=== PATIENT | male | born 1985 | race Caucasian/White ===

== ENCOUNTER 2020-09-13 21:16 | Emergency (ER) | payer BC ==
[2020-09-13] MEDS ORDERED: TYLENOL 325 MG PO ONE (21:45)
[2020-09-13] MEDS ORDERED: Reglan 10 MG/2 ML IV ONE (21:45)
[2020-09-13] MEDS ORDERED: Reglan 10 MG/2 ML ONE (21:51)
[2020-09-13] MEDS ORDERED: TYLENOL 325 MG ONE (21:51)
--- NOTE | 2020-09-13 21:56 | ERPHSYRPT ---
- History of Present Illness Time Seen by Provider: 09/13/20 21:33 Source: patient Exam Limitations: no limitations Patient Subjective Stated Complaint: pt states he has had headache at home , took a nap and woke up with a worse headache. bp at home was 191/114 Triage Nursing Assessment: pt alert and oriented, answers questions approp. pt ambulatory with steady gait noted. respirations nonlabored with lungs cta. pupils equal and reactive. bilat upper and lower ext strength equal and wnl Physician History: 35 years old male with history of migraines, hypertension not taking any medications currently presented in the ER with sudden onset headache in the occipital and left-sided moderate to severe intensity, sharp throbbing in nature, associated with nausea but no vomiting. Denies any numbness tingling or focal weakness. Headache is aggravated with light, movements/noise and better with sitting in a dark room. Do not have any difficulty movements of neck. Patient reports having similar headaches in the past but this time is not going away and checked his blood pressure at home it was 191 systolic. Patient reports he stopped taking antihypertensive as he lost weight and his blood pressure was staying better without medications for almost 6 months. No chest pain palpitations or shortness of breath. No abdominal pain. No fever or chills reported. Denies any sick contact. Timing/Duration: today, sudden, worse Quality: sharpness, throbbing Head Pain Location: occipital Severity of Pain-Max: severe Severity of Pain-Current: moderate Recent Head Trauma: no recent headache/trauma Modifying Factors: Worsens With: exposure to light, movement, noise Associated Symptoms: denies symptoms Previous symptoms: same symptoms as today Allergies/Adverse Reactions: Penicillins Allergy (Severe, Verified 09/13/20 21:39) Difficulty Breathing codeine Adverse Reaction (Intermediate, Verified 09/13/20 21:39) Hx Tetanus, Diphtheria Vaccination/Date Given: Yes Hx Influenza Vaccination/Date Given: No Hx Pneumococcal Vaccination/Date Given: No Immunizations Up to Date: Yes Travel Risk - International Travel Have you traveled outside of the country in past 3 weeks: No - Coronavirus Screening Are you exhibiting any of the following symptoms?: No Close contact with a COVID-19 positive Pt in past 14-21 Days: No - Review of Systems Constitutional: No Symptoms Eyes: No Symptoms Ears, Nose, & Throat: No Symptoms Respiratory: No Symptoms Cardiac: No Symptoms Abdominal/Gastrointestinal: No Symptoms Genitourinary Symptoms: No Symptoms Musculoskeletal: No Symptoms Skin: No Symptoms Neurological: Headache Psychological: No Symptoms Endocrine: No Symptoms Hematologic/Lymphatic: No Symptoms Immunological/Allergic: No Symptoms - Past Medical History Pertinent Past Medical History: Yes Cardiac History: Hypertension Respiratory History: Sleep Apnea - Past Surgical History Past Surgical History: Yes Musculoskeletal: Orthopedic Surgery Other Surgical History: carpal tunnel x2 - Social History Smoking Status: Never smoker Exposure to second hand smoke: No Drug Use: none Patient Lives Alone: No - Nursing Vital Signs Nursing Vital Signs: Initial Vital Signs Pulse Rate 78 09/13/20 21:22 Respiratory Rate 18 09/13/20 21:22 Blood Pressure 176/117 09/13/20 21:22 Pain Scale Pain Intensity 2 - Physical Exam General Appearance: no apparent distress, alert Eye Exam: PERRL/EOMI, eyes nml inspection Ears, Nose, Throat Exam: normal ENT inspection, TMs normal, pharynx normal Neck Exam: normal inspection, non-tender, supple, full range of motion Respiratory Exam: normal breath sounds, lungs clear Cardiovascular Exam: regular rate/rhythm, normal heart sounds Gastrointestinal/Abdominal Exam: soft, normal bowel sounds, No tenderness Back Exam: normal inspection, normal range of motion Extremity Exam: normal inspection, normal range of motion insight leader Exam: normal hearing, normal speech, PERRL Coordination/Gait Exam: normal finger to nose, normal gait, normal cerebellar function, negative Romberg's sign Motor/Sensory Exam: no motor deficit, no sensory deficit, no pronator drift, negative Babinski's sign DTR Exam: bicep (R): 2+, bicep (L): 2+, knee (R): 2+, knee (L): 2+ Skin Exam: normal color SpO2 Interpretation: normal O2 Delivery: Room Air - Course EKG Interpreted by Me: RATE (71), NORMAL AXIS, NORMAL INTERVALS, Non-specific ST Changes Ordered Tests: Active Orders 24 hr Category Date Time Status EKG-ER Only STAT Care 09/13/20 21:47 Active IV Insertion STAT Care 09/13/20 21:45 Active CHEST 1 VIEW (PORTABLE) Stat Exams 09/13/20 21:47 Taken HEAD WITHOUT CONTRAST [CT] Stat Exams 09/13/20 21:46 Taken CBC W DIFF Stat Lab 09/13/20 21:55 Completed CMP Stat Lab 09/13/20 21:55 Completed TROPONIN Q3H Lab 09/13/20 21:55 Completed TROPONIN Q3H Lab 09/14/20 01:00 Ordered TROPONIN Q3H Lab 09/14/20 04:00 Ordered TROPONIN Q3H Lab 09/14/20 07:00 Ordered TROPONIN Q3H Lab 09/14/20 10:00 Ordered UA W/RFX UR CULTURE Stat Lab 09/13/20 21:48 Completed Urine Triage Profile Stat Lab 09/13/20 21:48 Completed Medication Summary Discontinued Medications Generic Name Dose Route Start Last Admin Trade Name Freq PRN Reason Stop Dose Admin Acetaminophen 975 mg 09/13/20 21:45 09/13/20 21:53 Tylenol 325 Mg PO 09/13/20 21:46 975 mg STAT ONE Administration Acetaminophen Confirm 09/13/20 21:51 Tylenol 325 Mg Administered 09/13/20 21:52 Dose 975 mg .ROUTE .STK-MED ONE Ketorolac Tromethamine 30 mg 09/13/20 22:35 09/13/20 22:38 Toradol 30 Mg Injection IV 09/13/20 22:36 30 mg STAT ONE Administration Ketorolac Tromethamine Confirm 09/13/20 22:35 Toradol 30 Mg Injection Administered 09/13/20 22:36 Dose 30 mg .ROUTE .STK-MED ONE Metoclopramide HCl 10 mg 09/13/20 21:45 09/13/20 21:53 Reglan 10 Mg/2 Ml IV 09/13/20 21:46 10 mg STAT ONE Administration Metoclopramide HCl Confirm 09/13/20 21:51 Reglan 10 Mg/2 Ml Administered 09/13/20 21:52 Dose 10 mg .ROUTE .STK-MED ONE Lab/Rad Data: Laboratory Result Diagrams 09/13/20 21:55 09/13/20 21:55 Laboratory Results 09/13/20 09/13/20 09/13/20 Range/Units 21:55 21:55 21:55 WBC 10.9 H (4.0-10.5) K/mm3 RBC 5.50 (4.1-5.6) M/mm3 Hgb 15.9 (12.5-18.0) gm/dl Hct 49.0 (42-50) % MCV 89.1 (78-100) fl MCH 28.9 (26-32) pg MCHC 32.4 (32-36) g/dl RDW 13.1 (11.5-14.0) % Plt Count 251 (150-450) K/mm3 MPV 10.0 (7.5-11.0) fl Gran % 62.3 (36.0-66.0) % Eos # (Auto) 0.39 (0-0.5) Absolute Lymphs (auto) 2.65 (1.0-4.6) Absolute Monos (auto) 1.02 (0.0-1.3) Lymphocytes % 24.4 (24.0-44.0) % Monocytes % 9.4 (0.0-12.0) % Eosinophils % 3.6 (0.00-5.0) % Basophils % 0.3 (0.0-0.4) % Absolute Granulocytes 6.78 (1.4-6.9) Basophils # 0.03 (0-0.4) Sodium 139 (137-145) mmol/L Potassium 4.0 (3.5-5.1) mmol/L Chloride 100 (98-107) mmol/L Carbon Dioxide 31 H (22-30) mmol/L Anion Gap 12.2 (5-15) MEQ/L BUN 16 (9-20) mg/dL Creatinine 1.05 (0.66-1.25) mg/dL Estimated GFR > 60.0 ML/MIN Glucose 116 H (74-106) mg/dL Calcium 9.5 (8.4-10.2) mg/dL Total Bilirubin 0.70 (0.2-1.3) mg/dL AST 34 (17-59) U/L ALT 41 (0-50) U/L Alkaline Phosphatase 69 (38-126) U/L Troponin I < 0.012 (0.000-0.034) ng/mL Serum Total Protein 8.3 H (6.3-8.2) g/dL Albumin 4.7 (3.5-5.0) g/dL Urine Color (YELLOW) Urine Appearance (CLEAR) Urine pH (5-6) Ur Specific [place] (1.005-1.025) Urine Protein (Negative) Urine Ketones (NEGATIVE) Urine Blood (0-5) Cyrus/ul Urine Nitrite (NEGATIVE) Urine Bilirubin (NEGATIVE) Urine Urobilinogen (0-1) mg/dL Ur Leukocyte Esterase (NEGATIVE) Urine WBC (Auto) (0-5) /HPF Urine RBC (Auto) (0-2) /HPF U Epithel Cells (Auto) (FEW) /HPF Urine Bacteria (Auto) (NEGATIVE) /HPF Amorphous Crystals (NEGATIVE) /HPF Urine Mucus (Auto) (NEGATIVE) /HPF Urine Culture Reflexed (NO) Urine Glucose (NEGATIVE) mg/dL Urine Opiates Level (NEGATIVE) Ur Methadone (NEGATIVE) Urine Barbiturates (NEGATIVE) Ur Phencyclidine (PCP) (NEGATIVE) Urine Amphetamine (NEGATIVE) U Benzodiazepine Level (NEGATIVE) Urine Cocaine (NEGATIVE) Urine Marijuana (THC) (NEGATIVE) 09/13/20 09/13/20 Range/Units 21:48 21:48 WBC (4.0-10.5) K/mm3 RBC (4.1-5.6) M/mm3 Hgb (12.5-18.0) gm/dl Hct (42-50) % MCV (78-100) fl MCH (26-32) pg MCHC (32-36) g/dl RDW (11.5-14.0) % Plt Count (150-450) K/mm3 MPV (7.5-11.0) fl Gran % (36.0-66.0) % Eos # (Auto) (0-0.5) Absolute Lymphs (auto) (1.0-4.6) Absolute Monos (auto) (0.0-1.3) Lymphocytes % (24.0-44.0) % Monocytes % (0.0-12.0) % Eosinophils % (0.00-5.0) % Basophils % (0.0-0.4) % Absolute Granulocytes (1.4-6.9) Basophils # (0-0.4) Sodium (137-145) mmol/L Potassium (3.5-5.1) mmol/L Chloride (98-107) mmol/L Carbon Dioxide (22-30) mmol/L Anion Gap (5-15) MEQ/L BUN (9-20) mg/dL Creatinine (0.66-1.25) mg/dL Estimated GFR ML/MIN Glucose (74-106) mg/dL Calcium (8.4-10.2) mg/dL Total Bilirubin (0.2-1.3) mg/dL AST (17-59) U/L ALT (0-50) U/L Alkaline Phosphatase (38-126) U/L Troponin I (0.000-0.034) ng/mL Serum Total Protein (6.3-8.2) g/dL Albumin (3.5-5.0) g/dL Urine Color YELLOW (YELLOW) Urine Appearance CLOUDY (CLEAR) Urine pH 7.0 (5-6) Ur Specific [place] 1.019 (1.005-1.025) Urine Protein 30 (Negative) Urine Ketones NEGATIVE (NEGATIVE) Urine Blood NEGATIVE (0-5) Cyrus/ul Urine Nitrite NEGATIVE (NEGATIVE) Urine Bilirubin NEGATIVE (NEGATIVE) Urine Urobilinogen NEGATIVE (0-1) mg/dL Ur Leukocyte Esterase NEGATIVE (NEGATIVE) Urine WBC (Auto) 0-2 (0-5) /HPF Urine RBC (Auto) NONE (0-2) /HPF U Epithel Cells (Auto) NONE (FEW) /HPF Urine Bacteria (Auto) NONE SEEN (NEGATIVE) /HPF Amorphous Crystals FEW (NEGATIVE) /HPF Urine Mucus (Auto) SLIGHT (NEGATIVE) /HPF Urine Culture Reflexed NO (NO) Urine Glucose NEGATIVE (NEGATIVE) mg/dL Urine Opiates Level NEGATIVE (NEGATIVE) Ur Methadone NEGATIVE (NEGATIVE) Urine Barbiturates NEGATIVE (NEGATIVE) Ur Phencyclidine (PCP) NEGATIVE (NEGATIVE) Urine Amphetamine NEGATIVE (NEGATIVE) U Benzodiazepine Level NEGATIVE (NEGATIVE) Urine Cocaine NEGATIVE (NEGATIVE) Urine Marijuana (THC) NEGATIVE (NEGATIVE) - Progress Progress: improved, re-examined Air Movement: good Progress Note: 09/13/20 22:45 Patient has nonfocal neuro exam throughout stay in the ER. He is given migraine cocktail. I have obtained CT head which is negative for any acute intracranial findings. EKG sinus rhythm with no acute ST elevations. Negative initial troponin. Grossly unremarkable chemistries. Chest x-ray negative for any acute cardiopulmonary findings. I believe patient needs antihypertensive and el evated blood pressure could be contributing to his migraines getting worse. On reevaluation his pain is almost completely gone and wants to go home. Recommended taking Cozaar, blood pressure monitoring and outpatient follow-up with his primary care. Discussed signs symptoms of worsening needing return to ER which he seems understanding. Blood Culture(s) Obtained: No Antibiotics given: No Counseled pt/family regarding: lab results, diagnosis, need for follow-up, rad results - Departure Departure Disposition: Home Clinical Impression: Uncontrolled hypertension Migraine Qualifiers: Migraine type: without aura Status migrainosus presence: without status migrainosus Intractability: not intractable Qualified Code(s): G43.009 - Migraine without aura, not intractable, without status migrainosus Condition: Stable Critical Care Time: No Referrals: JAMAAL PEREA [Primary Care Provider] - (1-2 days for re evaluation) Instructions: Migraines (DC), Malignant Hypertension (DC) Additional Instructions: Take Tylenol/ibuprofen as needed for headache. Monitor your blood pressure regularly, keep a log and follow-up with primary care for reevaluation. Return to ER for worsening headache, uncontrolled hypertension, chest pain palpitations or shortness of breath. Prescriptions: Losartan Potassium [Cozaar] 25 mg PO DAILY 30 Days #30 tablet
[2020-09-13 21:57] VITALS: O2SAT 97
[2020-09-13 21:59] LABS: Absolute Neutrophil Ct (ANC) 6.78 (1.4-6.9); BASOPHIL % 0.3 % (0.0-0.4); Basophil (Absolute #) 0.03 (0-0.4); Eosinophil % 3.6 % (0.00-5.0); Eosinophil (Absolute #) 0.39 (0-0.5); Hemoglobin 15.9 gm/dl (12.5-18.0); Lymphocyte (Absolute #) 2.65 (1.0-4.6); Lymphocytes % 24.4 % (24.0-44.0); Mean Cell Volume 89.1 fl (78-100); Mean Corpuscular Hemoglobin 28.9 pg (26-32); Mean Corpuscular Hgb Concent. 32.4 g/dl (32-36); Monocyte (Absolute #) 1.02 (0.0-1.3); Monocytes % 9.4 % (0.0-12.0); Neutrophil % 62.3 % (36.0-66.0); Platelet Count 251 K/mm3 (150-450); Red Cell Distribution Width 13.1 % (11.5-14.0); White Blood Count 10.9 K/mm3 (4.0-10.5)
[2020-09-13 22:04] LABS: Amourphous Crystal FEW /HPF (NEGATIVE); Appearance CLOUDY (CLEAR); Bilirubin NEGATIVE (NEGATIVE); Blood NEGATIVE Ery/ul (0-5); Glucose NEGATIVE (NEGATIVE); Ketones NEGATIVE (NEGATIVE); Leukocyte Esterase NEGATIVE (NEGATIVE); Mucus SLIGHT /HPF (NEGATIVE); Nitrite NEGATIVE (NEGATIVE); Protein,Urine Dip 30 (Negative); Specific Gravity 1.019 (1.005-1.025); Urobilinogen NEGATIVE mg/dL (0-1); WBC 0-2 /HPF (0-5)
[2020-09-13 22:05] LABS: Bacteria NONE SEEN /HPF (NEGATIVE)
[2020-09-13 22:10] LABS: ALBUMIN 4.7 g/dL (3.5-5.0); ALKALINE PHOSPHATASE 69 U/L (38-126); ANION GAP 12.2 MEQ/L (5-15); BLOOD UREA NITROGEN 16 mg/dL (9-20); CHLORIDE 100 mmol/L (98-107); Calcium 9.5 mg/dL (8.4-10.2); Carbon Dioxide 31 mmol/L (22-30); Creatinine 1 1.05 mg/dL (0.66-1.25); EST GLOMERULAR FILTRATION RATE > 60.0 ML/MIN; Glucose 116 mg/dL (74-106); SGOT/AST 34 U/L (17-59); SGPT/ALT 41 U/L (0-50); SODIUM 139 mmol/L (137-145); Total Protein 8.3 g/dL (6.3-8.2)
[2020-09-13 22:21] LABS: Amphetamine,Urine NEGATIVE (NEGATIVE); Barbiturate,Urine NEGATIVE (NEGATIVE); Benzodiazepine,Urine NEGATIVE (NEGATIVE); Cocaine,Urine NEGATIVE (NEGATIVE); Methadone,Urine NEGATIVE (NEGATIVE); Opiate,Urine NEGATIVE (NEGATIVE); PCP,Urine NEGATIVE (NEGATIVE); THC,Urine NEGATIVE (NEGATIVE)
[2020-09-13] MEDS ORDERED: TORAdol 30 mg Injection ONE (22:35)
[2020-09-13] MEDS ORDERED: TORAdol 30 mg Injection IV ONE (22:35)
[2020-09-13 22:45] VITALS: BP 132/79; PULSE 76
--- NOTE | 2020-09-14 08:45 | XRAY ---
Indication: Hypertension. Comparison: None Portable chest demonstrates normal heart and lungs. Bony thorax intact with minimal double curvature scoliosis.
--- NOTE | 2020-09-14 08:47 | XRAY ---
Indication: Headache. Hypertension. Multiple contiguous axial images obtained through the head without contrast. Comparison: None Normal appearing brain parenchyma, ventricles, and bony calvarium. Mild mucosal thickening of both ethmoid and lesser degree both sphenoid sinuses. Mastoid air cells are clear. Impression: Paranasal sinus disease. Remaining CT head without contrast exam is normal. Comment: Preliminary interpretation was made by [facility]. No critical discrepancy.
== END 2020-09-13 22:56 | disposition home or self-care (01) ==
LOC: ED 21:16
DX: I10 Essential (primary) hypertension (principal); G43.909 Migraine, unspecified, not intractable, without status migrainosus
CPT/HCPCS: 36000; 36415; 70450; 71045; 80053; 80307; 81001; 84484; 85025; 93005; 96374; 96375; 99284; J1885; A9270-GY

== ENCOUNTER 2021-03-10 12:10 | Emergency (ER) | payer BC ==
[2021-03-10] MEDS ORDERED: Sodium Chloride 0.9% 1000 ML 1,000 ML IV SCH (12:45)
[2021-03-10 13:05] LABS: Absolute Neutrophil Ct (ANC) 6.19 (1.4-6.9); Basophil (Absolute #) 0 (0-0.4); Eosinophil % 0.7 % (0.00-5.0); Eosinophil (Absolute #) 0.06 (0-0.5); Hematocrit 46.2 % (42-50); Lymphocyte (Absolute #) 1.43 (1.0-4.6); Lymphocytes % 16.8 % (24.0-44.0); Mean Cell Volume 87.5 fl (78-100); Mean Corpuscular Hemoglobin 28.4 pg (26-32); Mean Corpuscular Hgb Concent. 32.5 g/dl (32-36); Mean Platelet Volume 9.8 fl (7.5-11.0); Monocyte (Absolute #) 0.84 (0.0-1.3); Monocytes % 9.9 % (0.0-12.0); Neutrophil % 72.6 % (36.0-66.0); Platelet Count 199 K/mm3 (150-450); Red Blood Count 5.28 M/mm3 (4.1-5.6); Red Cell Distribution Width 12.5 % (11.5-14.0); White Blood Count 8.5 K/mm3 (4.0-10.5)
--- NOTE | 2021-03-10 13:16 | XRAY ---
Indication: Chest pain, short of breath, and fever. Positive Covid 19. Comparison: September 13, 2020. Portable chest clear. Heart and mediastinal structures within normal limits. Bony thorax intact. No new/acute findings.
[2021-03-10 13:17] LABS: ALBUMIN 4.6 g/dL (3.5-5.0); ALKALINE PHOSPHATASE 54 U/L (38-126); ANION GAP 11.5 MEQ/L (5-15); BLOOD UREA NITROGEN 10 mg/dL (9-20); CHLORIDE 97 mmol/L (98-107); Calcium 9.5 mg/dL (8.4-10.2); Carbon Dioxide 32 mmol/L (22-30); Creatinine 1 0.93 mg/dL (0.66-1.25); EST GLOMERULAR FILTRATION RATE > 60.0 ML/MIN; Glucose 121 mg/dL (74-106); Potassium 3.9 mmol/L (3.5-5.1); SGOT/AST 36 U/L (17-59); SGPT/ALT 45 U/L (0-50); SODIUM 136 mmol/L (137-145); Total Protein 7.6 g/dL (6.3-8.2)
--- NOTE | 2021-03-10 15:06 | ERPHSYRPT ---
- History of Present Illness Time Seen by Provider: 03/10/21 13:45 Source: patient Exam Limitations: no limitations Patient Subjective Stated Complaint: low O2 sat Triage Nursing Assessment: pt to ED c/o covid haleyx. was seen in ED at [facility] this week and given pulse ox monitor, told if sats drop to 90 or close to come to nearest ED. pt states all day O2 has been low 90s. on RA om arrival to ED, pts pulse ox saturation 95%. rates 5/10 chest pain r/t frequent dry cough. pt also states he has been taking ibuprofen at home for fevers. Physician History: Patient is a 35-year-old male presents to our ED for evaluation of shortness of breath. Patient states he is Covid positive. Patient was diagnosed with Covid approximately 1 week ago. Patient has been experiencing fevers at home. He has been experiencing nausea vomiting and diarrhea. Patient states he has also have loss of taste and smell. Patient went to [facility] at that time. Patient was given a pulse oximeter. Patient states he has been monitoring his saturations. Patient states his saturations have been in the low 90s. He also mentions that he has been experiencing substernal chest pain. Pain rated 5 out of 10. He has been taking ibuprofen for symptoms. Patient does not feel he is getting any better. Patient has no other complaints at this time. Timing/Duration: week(s) (1 week) Severity: moderate Modifying Factors: Improves With: ibuprofen Associated Symptoms: denies symptoms, nausea, vomiting, shortness of breath, cough, chest pain, No abdominal pain Allergies/Adverse Reactions: Penicillins Allergy (Severe, Verified 09/13/20 21:39) Difficulty Breathing codeine Adverse Reaction (Intermediate, Verified 09/13/20 21:39) Hx Tetanus, Diphtheria Vaccination/Date Given: Yes Hx Influenza Vaccination/Date Given: No Hx Pneumococcal Vaccination/Date Given: No Travel Risk - International Travel Have you traveled outside of the country in past 3 weeks: No - Coronavirus Screening Are you exhibiting any of the following symptoms?: Yes Symptoms: Fever, Cough: New Onset, Shortness of Breath, Vomiting/Diarrhea, Loss of Taste or Smell, Headaches/Body Aches/Fatigue - Vaccine Status Have you recieved a Covid-19 vaccination: No - Review of Systems Constitutional: No Symptoms, No Fever, No Chills Eyes: No Symptoms Ears, Nose, & Throat: No Symptoms Respiratory: No Symptoms, No Cough, No Dyspnea Cardiac: No Symptoms, No Chest Pain, No Edema, No Syncope Abdominal/Gastrointestinal: No Symptoms, No Abdominal Pain, No Nausea, No Vomiting, No Diarrhea Genitourinary Symptoms: No Symptoms, No Dysuria Musculoskeletal: No Symptoms, No Back Pain, No Neck Pain Skin: No Symptoms, No Rash Neurological: No Symptoms, No Dizziness, No Focal Weakness, No Sensory Changes Psychological: No Symptoms Endocrine: No Symptoms Hematologic/Lymphatic: No Symptoms Immunological/Allergic: No Symptoms All Other Systems: Reviewed and Negative - Past Medical History Pertinent Past Medical History: Yes Cardiac History: Hypertension Respiratory History: Asthma, Sleep Apnea - Past Surgical History Past Surgical History: Yes Musculoskeletal: Orthopedic Surgery Other Surgical History: carpal tunnel x2 - Social History Smoking Status: Never smoker Exposure to second hand smoke: No Drug Use: none Patient Lives Alone: No - Nursing Vital Signs Nursing Vital Signs: Initial Vital Signs Temperature 100.9 F 03/10/21 12:30 Pulse Rate 73 03/10/21 12:30 Respiratory Rate 15 03/10/21 12:30 Blood Pressure 125/55 03/10/21 12:30 O2 Sat by Pulse Oximetry 97 03/10/21 12:30 Pain Scale Pain Intensity 5 - Physical Exam General Appearance: no apparent distress, alert Eye Exam: PERRL/EOMI, eyes nml inspection Ears, Nose, Throat Exam: normal ENT inspection, TMs normal, pharynx normal, moist mucous membranes Neck Exam: normal inspection, non-tender, supple, full range of motion Respiratory Exam: normal breath sounds, lungs clear, No respiratory distress Cardiovascular Exam: regular rate/rhythm, normal heart sounds, normal peripheral pulses Gastrointestinal/Abdomen Exam: soft, normal bowel sounds, No tenderness, No mass Back Exam: normal inspection, normal range of motion, No CVA tenderness, No vertebral tenderness Extremity Exam: normal inspection, normal range of motion, pelvis stable Neurologic Exam: alert, oriented x 3, cooperative, normal mood/affect, nml cerebellar function, nml station & gait, sensation nml, No motor deficits Skin Exam: normal color, warm, dry, No rash Lymphatic Exam: No adenopathy SpO2 Interpretation: normal SpO2: 93 O2 Delivery: Room Air - Course Nursing assessment & vital signs reviewed: Yes EKG Interpreted by Me: RATE (97), Sinus Rhythm, NORMAL AXIS, NORMAL INTERVALS - Radiology Exams Chest X-ray Interpretation: Teleradiologist Report (Lungs are clear. Bony thorax intact. Mediastinum within normal limits. No acute findings) Ordered Tests: Active Orders 24 hr Category Date Time Status [employer] Architect STAT Care 03/10/21 12:45 Active EKG-ER Only STAT Care 03/10/21 12:44 Active IV Insertion STAT Care 03/10/21 12:44 Active Pulse Oximetry (ED) STAT Care 03/10/21 12:44 Active CHEST 1 VIEW (PORTABLE) Stat Exams 03/10/21 12:44 Completed CBC W DIFF Stat Lab 03/10/21 12:54 Completed CMP Stat Lab 03/10/21 12:54 Completed TROPONIN Q3H Lab 03/10/21 12:54 Completed TROPONIN Q3H Lab 03/10/21 15:20 Received TROPONIN Q3H Lab 03/10/21 18:45 Ordered TROPONIN Q3H Lab 03/10/21 21:45 Ordered TROPONIN Q3H Lab 03/11/21 00:45 Ordered Urine Triage Profile Stat Lab 03/10/21 14:45 Completed Medication Summary Generic Name Dose Route Start Last Admin Trade Name Freq PRN Reason Stop Dose Admin Albuterol Sulfate 4 puff 03/10/21 15:12 Ventolin Common Canister IH 04/09/21 15:11 Q4H PRN PRN SHORTNESS OF BREATH/WHEEZING Sodium Chloride 1,000 mls @ 100 mls/hr 03/10/21 12:45 03/10/21 13:37 Sodium Chloride 0.9% 1000 Ml IV 04/09/21 12:44 100 mls/hr .Q10H JULIO CÉSAR Administration Discontinued Medications Generic Name Dose Route Start Last Admin Trade Name Freq PRN Reason Stop Dose Admin Dexamethasone Sodium Phosphate 6 mg 03/10/21 15:12 03/10/21 15:17 Decadron 10mg Inj. IV 03/10/21 15:13 6 mg STAT ONE Administration Dexamethasone Sodium Phosphate Confirm 03/10/21 15:15 Decadron 10mg Inj. Administered 03/10/21 15:16 Dose 10 mg .ROUTE .STK-MED ONE Lab/Rad Data: Laboratory Result Diagrams 03/10/21 12:54 03/10/21 12:54 Laboratory Results 03/10/21 03/10/21 03/10/21 Range/Units 14:45 12:54 12:54 WBC (4.0-10.5) K/mm3 RBC (4.1-5.6) M/mm3 Hgb (12.5-18.0) gm/dl Hct (42-50) % MCV (78-100) fl MCH (26-32) pg MCHC (32-36) g/dl RDW (11.5-14.0) % Plt Count (150-450) K/mm3 MPV (7.5-11.0) fl Gran % (36.0-66.0) % Eos # (Auto) (0-0.5) Absolute Lymphs (auto) (1.0-4.6) Absolute Monos (auto) (0.0-1.3) Lymphocytes % (24.0-44.0) % Monocytes % (0.0-12.0) % Eosinophils % (0.00-5.0) % Basophils % (0.0-0.4) % Absolute Granulocytes (1.4-6.9) Basophils # (0-0.4) Sodium 136 L (137-145) mmol/L Potassium 3.9 (3.5-5.1) mmol/L Chloride 97 L (98-107) mmol/L Carbon Dioxide 32 H (22-30) mmol/L Anion Gap 11.5 (5-15) MEQ/L BUN 10 (9-20) mg/dL Creatinine 0.93 (0.66-1.25) mg/dL Estimated GFR > 60.0 ML/MIN Glucose 121 H (74-106) mg/dL Calcium 9.5 (8.4-10.2) mg/dL Total Bilirubin 0.40 (0.2-1.3) mg/dL AST 36 (17-59) U/L ALT 45 (0-50) U/L Alkaline Phosphatase 54 (38-126) U/L Troponin I < 0.012 (0.000-0.034) ng/mL Serum Total Protein 7.6 (6.3-8.2) g/dL Albumin 4.6 (3.5-5.0) g/dL Urine Opiates Level NEGATIVE (NEGATIVE) Ur Methadone NEGATIVE (NEGATIVE) Urine Barbiturates NEGATIVE (NEGATIVE) Ur Phencyclidine (PCP) NEGATIVE (NEGATIVE) Urine Amphetamine NEGATIVE (NEGATIVE) U Benzodiazepine Level NEGATIVE (NEGATIVE) Urine Cocaine NEGATIVE (NEGATIVE) Urine Marijuana (THC) NEGATIVE (NEGATIVE) 03/10/21 Range/Units 12:54 WBC 8.5 (4.0-10.5) K/mm3 RBC 5.28 (4.1-5.6) M/mm3 Hgb 15.0 (12.5-18.0) gm/dl Hct 46.2 (42-50) % MCV 87.5 (78-100) fl MCH 28.4 (26-32) pg MCHC 32.5 (32-36) g/dl RDW 12.5 (11.5-14.0) % Plt Count 199 (150-450) K/mm3 MPV 9.8 (7.5-11.0) fl Gran % 72.6 H (36.0-66.0) % Eos # (Auto) 0.06 (0-0.5) Absolute Lymphs (auto) 1.43 (1.0-4.6) Absolute Monos (auto) 0.84 (0.0-1.3) Lymphocytes % 16.8 L (24.0-44.0) % Monocytes % 9.9 (0.0-12.0) % Eosinophils % 0.7 (0.00-5.0) % Basophils % 0.0 (0.0-0.4) % Absolute Granulocytes 6.19 (1.4-6.9) Basophils # 0 (0-0.4) Sodium (137-145) mmol/L Potassium (3.5-5.1) mmol/L Chloride (98-107) mmol/L Carbon Dioxide (22-30) mmol/L Anion Gap (5-15) MEQ/L BUN (9-20) mg/dL Creatinine (0.66-1.25) mg/dL Estimated GFR ML/MIN Glucose (74-106) mg/dL Calcium (8.4-10.2) mg/dL Total Bilirubin (0.2-1.3) mg/dL AST (17-59) U/L ALT (0-50) U/L Alkaline Phosphatase (38-126) U/L Troponin I (0.000-0.034) ng/mL Serum Total Protein (6.3-8.2) g/dL Albumin (3.5-5.0) g/dL Urine Opiates Level (NEGATIVE) Ur Methadone (NEGATIVE) Urine Barbiturates (NEGATIVE) Ur Phencyclidine (PCP) (NEGATIVE) Urine Amphetamine (NEGATIVE) U Benzodiazepine Level (NEGATIVE) Urine Cocaine (NEGATIVE) Urine Marijuana (THC) (NEGATIVE) - Progress Progress: improved Progress Note: 03/10/21 15:39 Patient reassessed. He feels well. No shortness of breath. No chest pain. Patient chest pain only occurs when he coughs occasionally. Patient ambulated in our ED. There was no hypoxia observed. Chest x-ray was negative. Vital stable. Patient received a dose of Decadron in our ED. Patient will have a albuterol inhaler given to him for home as well. Will discharge at this time. Patient will continue to monitor his O2 sat at home. Patient has no history of PE. Given his complaints his history and his vitals PE is low probability. Will discharge home. Patient to follow-up with Dr. Kent within 48 hours for evaluation. Counseled pt/family regarding: lab results, diagnosis, need for follow-up, rad results - Departure Departure Disposition: Home Clinical Impression: Fever, COVID-19 Condition: Stable Critical Care Time: No Referrals: JAMAAL KENT [Primary Care Provider] - Additional Instructions: Discharge/Care Plan BRAXTON MIRANDA was seen on 03/10/21 in the Emergency Room. The patient was counseled regarding Diagnosis,Lab results, Imaging studies, need for follow up and when to return to the Emergency Room. Prescriptions given: Discharge Note I have spoken with the patient and/or caregivers. I have explained the patient's condition, diagnosis and treatment plan based on the information available to me at this time. I have answered the patient's and/or caregiver's questions and addressed any concerns. The patient and/or caregivers have as good understanding of the patient's diagnosis, condition and treatment plan as can be expected at this point. The vital signs have been stable. The patient's condition is stable and appropriate for discharge from the emergency department. The patient will pursue further outpatient evaluation with the primary care ph ysician or other designated or consulting physician as outlined in the discharge instructions. The patient and/or caregivers are agreeable to this plan of care and follow-up instructions have been explained in detail. The patient and/or caregivers have received these instruction. The patient/and or caregivers are aware that any significant change in condition or worsening of symptoms should prompt an immediate return to this or the closest emergency department or call 911.
[2021-03-10 15:12] VITALS: BP 118/75
[2021-03-10] MEDS ORDERED: DECADRON 10MG INJ. IV ONE (15:12)
[2021-03-10] MEDS ORDERED: DECADRON 10MG INJ. ONE (15:15)
[2021-03-10 15:20] LABS: Barbiturate,Urine NEGATIVE (NEGATIVE); Benzodiazepine,Urine NEGATIVE (NEGATIVE); Cocaine,Urine NEGATIVE (NEGATIVE); Methadone,Urine NEGATIVE (NEGATIVE); Opiate,Urine NEGATIVE (NEGATIVE); PCP,Urine NEGATIVE (NEGATIVE); THC,Urine NEGATIVE (NEGATIVE)
[2021-03-10 15:28] LABS: Amphetamine,Urine NEGATIVE (NEGATIVE)
[2021-03-10 15:49] LABS: BAND 4 % (0.0-2.0); Eosinophil 1 % (0.00-3.0); Lymphocytes 18 % (24-44); Monocyte 5 % (0.0-12.0); Neutrophils 72 % (36.-66.); Platelet Estimate NORMAL (NORMAL); Total Cells Counted 100
[2021-03-10] MEDS ORDERED: Proair Hfa MDI IH PRN (16:02)
[2021-03-10 16:10] VITALS: PULSE 84; O2SAT 94
== END 2021-03-10 16:18 | disposition home or self-care (01) ==
LOC: ED 12:10
DX: R50.9 Fever, unspecified (principal); U07.1 COVID-19
CPT/HCPCS: 36000; 36415; 71045; 80053; 80307; 84484; 85025; 93005; 93041; 94640; 94760; 96374; 99284; J1100; A9270-GY

== ENCOUNTER 2023-02-22 08:34 | Emergency (ER) | payer BC ==
[2023-02-22] MEDS ORDERED: TORAdol 30 mg Injection IV ONE (09:04)
[2023-02-22] MEDS ORDERED: TORAdol 30 mg Injection ONE (09:06)
[2023-02-22 09:14] LABS: Absolute Neutrophil Ct (ANC) 8.77 x10^3/uL (1.4-6.9); BASOPHIL % 0.3 % (0.0-0.4); Basophil (Absolute #) 0.04 x10^3/uL (0-0.4); Eosinophil % 1.1 % (0.00-5.0); Eosinophil (Absolute #) 0.14 x10^3/uL (0-0.5); Hematocrit 49.2 % (42-50); Hemoglobin 15.5 g/dL (12.5-18.0); IMMATURE GRAN # 0.13 x10^3u/L (0.00-0.03); Lymphocyte (Absolute #) 2.89 x10^3/uL (1.0-4.6); Lymphocytes % 22.5 % (24.0-44.0); Mean Cell Volume 88.5 fL (78-100); Mean Corpuscular Hemoglobin 27.9 pg (26-32); Mean Corpuscular Hgb Concent. 31.5 g/dL (32-36); Mean Platelet Volume 9.4 fL (7.5-11.0); Neutrophil % 68.1 % (36.0-66.0); Platelet Count 280 x10^3/uL (150-450); Red Blood Count 5.56 x10^6/uL (4.1-5.6); Red Cell Distribution Width 12.7 % (11.5-14.0); White Blood Count 12.9 x10^3/uL (4.0-10.5)
--- NOTE | 2023-02-22 09:32 | ERPHSYRPT ---
- History of Present Illness Historian: patient Exam Limitations: no limitations Patient Subjective Stated Complaint: c/o right rib pain. Patient states he has been having pain for a few weeks since he was ill with a cough. Patient indicates he is no longer ill but that the pain has continued. He coughed hard this am and heard a "pop" and now the pain to his right rib area is much worse. Triage Nursing Assessment: Patient ambulated back to ER. No SOB. He is alert and oriented. Patient having difficulties raising right arm to remove outer clothing for assessment. Some red bruising noted to right upper abdomen/right chest area. Patient does have a dry, occassional cough. Physician History: 37 yo WM w R lateral rib pain x 2wks which is worse since coughing at 2AM. Pain is 3/10 and worse w movement. He denies trauma. Pt has had a cough x 3 wks which is improving. He denies coryza/fever/nausea/vomiting/diarrhea/dyspnea. Timing/Duration: other (2wks, worse since 2AM) Activities at Onset: other (Coughing) Quality: sharpness Location: other (R lateral thoracic) Chest Pain Radiation: no radiation Severity of Pain-Max: severe Severity of Pain-Current: mild Modifying Factors: Improves With: movement Associated Symptoms: cough Prior Chest Pain/Cardiac Workup: no prior chest pain Nitro Today/Relief: no nitro taken today Aspirin Treatment Today: no aspirin today Allergies/Adverse Reactions: Penicillins Allergy (Severe, Verified 02/22/23 08:39) Difficulty Breathing codeine Adverse Reaction (Intermediate, Verified 02/22/23 08:39) Hx Tetanus, Diphtheria Vaccination/Date Given: Yes Hx Influenza Vaccination/Date Given: No Hx Pneumococcal Vaccination/Date Given: No Immunizations Up to Date: Yes Travel Risk - International Travel Have you traveled outside of the country in past 3 weeks: No - Coronavirus Screening Are you exhibiting any of the following symptoms?: Yes Symptoms: Cough: New Onset - Vaccine Status Have you recieved a Covid-19 vaccination: No - Review of Systems Constitutional: No Symptoms Eyes: No Symptoms Ears, Nose, & Throat: No Symptoms Respiratory: No Symptoms, Cough Cardiac: No Symptoms Abdominal/Gastrointestinal: No Symptoms Genitourinary Symptoms: No Symptoms Musculoskeletal: No Symptoms Skin: No Symptoms Neurological: No Symptoms Psychological: No Symptoms Endocrine: No Symptoms Hematologic/Lymphatic: No Symptoms Immunological/Allergic: No Symptoms - Past Medical History Pertinent Past Medical History: Yes Cardiac History: Hypertension Respiratory History: Asthma, Sleep Apnea - Past Surgical History Past Surgical History: Yes Musculoskeletal: Orthopedic Surgery Other Surgical History: carpal tunnel x2 - Social History Smoking Status: Never smoker Exposure to second hand smoke: No Drug Use: none Patient Lives Alone: No - Nursing Vital Signs Nursing Vital Signs: Initial Vital Signs Temperature 97.1 F 02/22/23 08:35 Pulse Rate 73 02/22/23 08:35 Respiratory Rate 18 02/22/23 08:35 Blood Pressure 167/114 02/22/23 08:35 O2 Sat by Pulse Oximetry 98 02/22/23 08:35 Pain Scale Pain Intensity 3 Hypertensive - Physical Exam General Appearance: no apparent distress (In pain) Eye Exam: PERRL/EOMI, eyes nml inspection Ears, Nose, Throat Exam: normal ENT inspection, TMs normal, pharynx normal, moist mucous membranes Neck Exam: normal inspection, non-tender, supple, full range of motion Respiratory Exam: diminished breath sounds (Decreased BS at bases/R lateral rib TTP), No respiratory distress Cardiovascular Exam: regular rate/rhythm, normal heart sounds, normal peripheral pulses, capillary refill <2 sec, No murmur Gastrointestinal/Abdomen Exam: soft, normal bowel sounds, No tenderness Back Exam: normal inspection, normal range of motion, No CVA tenderness Extremity Exam: normal inspection, normal range of motion Neurologic Exam: alert, oriented x 3, cooperative, home health specialist II-XII nml as tested, normal mood/affect, nml cerebellar function, nml station & gait, sensation nml Skin Exam: normal color, warm, dry Lymphatic Exam: No adenopathy SpO2 Interpretation: normal SpO2: 98 O2 Delivery: Room Air - Course Nursing assessment & vital signs reviewed: Yes EKG Interpreted by Me: RATE (NSR/Rate 69/Normal QT-QTc/Incomplete RBBB/Normal Twaves/No acute ST segment changes) Ordered Tests: Active Orders 24 hr Category Date Time Status EKG-ER Only STAT Care 02/22/23 09:02 Active CHEST WITHOUT CONTRAST [CT] Stat Exams 02/22/23 09:51 Completed CBC W DIFF Stat Lab 02/22/23 09:12 Completed CMP Stat Lab 02/22/23 09:12 Completed D-DIMER QUANTITATIVE Stat Lab 02/22/23 09:13 Completed TROPONIN Q4H Lab 02/22/23 09:12 Completed TROPONIN Q4H Lab 02/22/23 13:15 Ordered TROPONIN Q4H Lab 02/22/23 17:15 Ordered Medication Summary Discontinued Medications Generic Name Dose Route Start Last Admin Trade Name Blakeq PRN Reason Stop Dose Admin Ketorolac Tromethamine 30 mg 02/22/23 09:04 02/22/23 09:21 Ketorolac Tromethamine 30 Mg/Ml Inj IV 02/22/23 09:05 30 mg STAT ONE Administration Ketorolac Tromethamine Confirm 02/22/23 09:06 Ketorolac Tromethamine 30 Mg/Ml Inj Administered 02/22/23 09:07 Dose 30 mg .ROUTE .STK-MED ONE Lab/Rad Data: Laboratory Result Diagrams 02/22/23 09:12 02/22/23 09:12 Laboratory Results 02/22/23 02/22/23 02/22/23 Range/Units 09:22 09:13 09:12 WBC (4.0-10.5) x10^3/uL RBC (4.1-5.6) x10^6/uL Hgb (12.5-18.0) g/dL Hct (42-50) % MCV (78-100) fL MCH (26-32) pg MCHC (32-36) g/dL RDW (11.5-14.0) % Plt Count (150-450) x10^3/uL MPV (7.5-11.0) fL Gran % (36.0-66.0) % Immature Gran % (Auto) (0.00-0.4) % Nucleat RBC Rel Count (0.00-0.1) % Eos # (Auto) (0-0.5) x10^3/uL Immature Gran # (Auto) (0.00-0.03) x10^3u/L Absolute Lymphs (auto) (1.0-4.6) x10^3/uL Absolute Monos (auto) (0.0-1.3) x10^3/uL Absolute Nucleated RBC (0.00-0.01) x10^3u/L Lymphocytes % (24.0-44.0) % Monocytes % (0.0-12.0) % Eosinophils % (0.00-5.0) % Basophils % (0.0-0.4) % Absolute Granulocytes (1.4-6.9) x10^3/uL Basophils # (0-0.4) x10^3/uL D-Dimer 0.37 (0.0-0.50) mg/L Sodium (137-145) mmol/L Potassium (3.5-5.1) mmol/L Chloride (98-107) mmol/L Carbon Dioxide (22-30) mmol/L Anion Gap (5-15) MEQ/L BUN (9-20) mg/dL Creatinine (0.66-1.25) mg/dL Estimated GFR ML/MIN Glucose (74-106) mg/dL Calcium (8.4-10.2) mg/dL Total Bilirubin (0.2-1.3) mg/dL AST (17-59) U/L ALT (0-50) U/L Alkaline Phosphatase (38-126) U/L Troponin I < 0.012 (0.000-0.034) ng/mL Serum Total Protein (6.3-8.2) g/dL Albumin (3.5-5.0) g/dL Influenza Type A Ag NEGATIVE (NEGATIVE) Influenza Type B Ag NEGATIVE (NEGATIVE) RSV (PCR) NEGATIVE (NEGATIVE) SARS-CoV-2 (PCR) NEGATIVE (NEGATIVE) 02/22/23 02/22/23 Range/Units 09:12 09:12 WBC 12.9 H (4.0-10.5) x10^3/uL RBC 5.56 (4.1-5.6) x10^6/uL Hgb 15.5 (12.5-18.0) g/dL Hct 49.2 (42-50) % MCV 88.5 (78-100) fL MCH 27.9 (26-32) pg MCHC 31.5 L (32-36) g/dL RDW 12.7 (11.5-14.0) % Plt Count 280 (150-450) x10^3/uL MPV 9.4 (7.5-11.0) fL Gran % 68.1 H (36.0-66.0) % Immature Gran % (Auto) 1.0 H (0.00-0.4) % Nucleat RBC Rel Count 0.0 (0.00-0.1) % Eos # (Auto) 0.14 (0-0.5) x10^3/uL Immature Gran # (Auto) 0.13 H (0.00-0.03) x10^3u/L Absolute Lymphs (auto) 2.89 (1.0-4.6) x10^3/uL Absolute Monos (auto) 0.90 (0.0-1.3) x10^3/uL Absolute Nucleated RBC 0.00 (0.00-0.01) x10^3u/L Lymphocytes % 22.5 L (24.0-44.0) % Monocytes % 7.0 (0.0-12.0) % Eosinophils % 1.1 (0.00-5.0) % Basophils % 0.3 (0.0-0.4) % Absolute Granulocytes 8.77 H (1.4-6.9) x10^3/uL Basophils # 0.04 (0-0.4) x10^3/uL D-Dimer (0.0-0.50) mg/L Sodium 141 (137-145) mmol/L Potassium 4.4 (3.5-5.1) mmol/L Chloride 100 (98-107) mmol/L Carbon Dioxide 31 H (22-30) mmol/L Anion Gap 13.6 (5-15) MEQ/L BUN 21 H (9-20) mg/dL Creatinine 1.00 (0.66-1.25) mg/dL Estimated GFR > 60.0 ML/MIN Glucose 95 (74-106) mg/dL Calcium 9.4 (8.4-10.2) mg/dL Total Bilirubin 0.50 (0.2-1.3) mg/dL AST 54 (17-59) U/L ALT 65 H (0-50) U/L Alkaline Phosphatase 84 (38-126) U/L Troponin I (0.000-0.034) ng/mL Serum Total Protein 8.9 H (6.3-8.2) g/dL Albumin 4.8 (3.5-5.0) g/dL Influenza Type A Ag (NEGATIVE) Influenza Type B Ag (NEGATIVE) RSV (PCR) (NEGATIVE) SARS-CoV-2 (PCR) (NEGATIVE) - Progress Progress: improved Progress Note: 02/22/23 11:19 Nursing note and vital signs reviewed No food or housing insecurities noted Pain improved w 30mg IV Toradol All lab results reviewed and shared w pt CT results reviewed and shared w pt Blood pressure elevated but decreasing upon discharge. Pt has yet to take his BP meds today 02/22/23 11:21 02/22/23 11:21 Counseled pt/family regarding: lab results, diagnosis, need for follow-up, rad results Medical Desision Making - Diagnostic Testing Diagnostic test were ordered, analyzed, and reviewed by me: Yes Radiological Interpretation: Reviewed by me - Risk of complications The pt has a mod risk of morbidity or mortality based on: Need for prescription drug management - Departure Departure Disposition: Home Clinical Impression: Right rib fracture, Hypertension Condition: Stable Critical Care Time: No Referrals: JAMAAL LUKE [Primary Care Provider] - Follow up/PCP as directed Instructions: Rib Fracture (DC) Additional Instructions: Pain meds as needed(Use a stool softener w pain meds) Be sure to cough and deep breathing encouraged Follow up with your family MD Return to ER for temperature greater than 100.5 or increasing shortness of breath Prescriptions: Hydrocodone/Acetaminophen [Hydrocodone-Acetamin 10-325 mg] 0.5 each PO Q4H PRN PRN #10 tablet MDD 4 tabs PRN Reason: Pain
[2023-02-22 09:37] LABS: ALBUMIN 4.8 g/dL (3.5-5.0); ALKALINE PHOSPHATASE 84 U/L (38-126); ANION GAP 13.6 MEQ/L (5-15); BLOOD UREA NITROGEN 21 mg/dL (9-20); CHLORIDE 100 mmol/L (98-107); Calcium 9.4 mg/dL (8.4-10.2); Carbon Dioxide 31 mmol/L (22-30); EST GLOMERULAR FILTRATION RATE > 60.0 ML/MIN; Glucose 95 mg/dL (74-106); Potassium 4.4 mmol/L (3.5-5.1); SGOT/AST 54 U/L (17-59); SGPT/ALT 65 U/L (0-50); SODIUM 141 mmol/L (137-145); Total Protein 8.9 g/dL (6.3-8.2)
[2023-02-22 09:59] LABS: INFLUENZA A NEGATIVE (NEGATIVE); INFLUENZA B NEGATIVE (NEGATIVE); RESPIRATORY SYNCTIAL VIRUS NEGATIVE (NEGATIVE); SARS-CoV-2 Xpert Express NEGATIVE (NEGATIVE)
--- NOTE | 2023-02-22 11:05 | XRAY ---
Indication: Right rib pain 2 weeks. No known injury. Multiple contiguous axial images obtained through the chest without contrast. Cutaneous BB placed over region of interest. Comparison: None Lungs inflated and clear. Heart is not enlarged. Aorta is normal in course and caliber. No pathologic mediastinal lymphadenopathy. Bony thorax intact demonstrates nondisplaced right anterior 7 rib fracture best seen sagittal plane. Limited upper abdomen including adrenal glands unremarkable. Impression: Nondisplaced right anterior [address] chest without contrast exam is negative.
[2023-02-22 11:16] VITALS: O2SAT 98
[2023-02-22 12:20] VITALS: BP 128/95; PULSE 95
== END 2023-02-22 12:16 | disposition home or self-care (01) ==
LOC: ED 08:34
DX: S22.31XA Fracture of one rib, right side, initial encounter for closed fracture (principal); I10 Essential (primary) hypertension; R05.9 Cough, unspecified; R07.81 Pleurodynia; Z79.899 Other long term (current) drug therapy; Z20.828 Contact with and (suspected) exposure to other viral communicable diseases
CPT/HCPCS: 0241U; 36000; 36415; 71250; 80053; 84484; 85025; 85379; 93005; 96374; 99284; J1885

== ENCOUNTER 2023-12-31 17:03 | Emergency (ER) | payer BC ==
[2023-12-31 17:20] VITALS: TEMP 96.2
--- NOTE | 2023-12-31 17:57 | ERPHSYRPT ---
- History of Present Illness Source: patient Exam Limitations: no limitations Patient Subjective Stated Complaint: pt here for left rib pain, he states he as had a cough for 4 weeks now, is no tesslon and steriods. no fever, Triage Nursing Assessment: pt alert, resp easy, occ dry cough, skin w/d/p. no edema noted Hx Tetanus, Diphtheria Vaccination/Date Given: Yes Hx Influenza Vaccination/Date Given: No Hx Pneumococcal Vaccination/Date Given: No Immunizations Up to Date: Yes <KEIVN HI - Last Filed: 12/31/23 17:54> - History of Present Illness Timing/Duration: today Associated Symptoms: cough <DEBBIE MIRZA - Last Filed: 12/31/23 23:25> - History of Present Illness Time Seen by Provider: 12/31/23 17:06 Physician History: 38 years old male presented to the ER with complains of cough congestion going on for the last 4 weeks. Patient reports coughing up thick white sputum initially and gradually now it is getting green. He has finished steroids outpatient and had x-ray done earlier this month which was negative. Patient reported for last couple of days cough is getting worse and is having more pain in the left lower rib cage area which hurts to move, take a deep breath and has to sit in a certain position. Patient has history of osteopenia and spontaneous rib fractures with coughing in the past on the right side. Denies any difficulty breathing. Denies any fever or chills. (KEVIN HI) Allergies/Adverse Reactions: Penicillins Allergy (Severe, Verified 12/31/23 17:17) Difficulty Breathing codeine Adverse Reaction (Intermediate, Verified 12/31/23 17:17) Home Medications: Benzonatate 100 mg PO TID PRN 12/31/23 [History] Prednisone 5 mg [Deltasone 5 mg] 5 mg PO DAILY 12/31/23 [History] Travel Risk - International Travel Have you traveled outside of the country in past 3 weeks: No - Coronavirus Screening Are you exhibiting any of the following symptoms?: No Close contact with a COVID-19 positive Pt in past 14-21 Days: No - Vaccine Status Have you recieved a Covid-19 vaccination: No <KEVIN HI - Last Filed: 12/31/23 17:54> - Review of Systems Constitutional: No Symptoms Eyes: No Symptoms Ears, Nose, & Throat: No Symptoms Respiratory: Cough Cardiac: Chest Pain Abdominal/Gastrointestinal: No Symptoms Genitourinary Symptoms: No Symptoms Musculoskeletal: No Symptoms Skin: No Symptoms Neurological: No Symptoms Endocrine: No Symptoms Hematologic/Lymphatic: No Symptoms <KOLTONKEVIN - Last Filed: 12/31/23 17:54> - Past Medical History Pertinent Past Medical History: Yes Cardiac History: Hypertension Respiratory History: Asthma, Sleep Apnea - Past Surgical History Past Surgical History: Yes Musculoskeletal: Orthopedic Surgery Other Surgical History: carpal tunnel x2 - Social History Smoking Status: Never smoker Exposure to second hand smoke: No Drug Use: none Patient Lives Alone: No <KOLTONKEVIN - Last Filed: 12/31/23 17:54> - Physical Exam General Appearance: no apparent distress, alert Eye Exam: PERRL/EOMI Ears, Nose, Throat Exam: normal ENT inspection Neck Exam: normal inspection, non-tender, supple, full range of motion Respiratory Exam: normal breath sounds, chest tenderness (Left lower anterolateral/posterior chest wall significant tenderness. No erythema, no crepitus, no flail segment), lungs clear Cardiovascular Exam: regular rate/rhythm, normal heart sounds Back Exam: normal inspection Extremity Exam: normal inspection, normal range of motion Neurologic Exam: alert, oriented x 3, cooperative Skin Exam: normal color SpO2 Interpretation: normal SpO2: 96 O2 Delivery: Room Air <KOLTON,KEVIN - Last Filed: 12/31/23 17:54> - Physical Exam Gastrointestinal/Abdomen Exam: soft, normal bowel sounds, No tenderness Rectal Exam: deferred <DEBBIE MIRZA - Last Filed: 12/31/23 23:25> - Nursing Vital Signs Nursing Vital Signs: Initial Vital Signs Temperature 96.2 F 12/31/23 17:19 Pulse Rate 100 H 12/31/23 17:19 Respiratory Rate 20 12/31/23 17:19 Blood Pressure 154/109 12/31/23 17:19 O2 Sat by Pulse Oximetry 97 12/31/23 17:19 Pain Scale Pain Intensity 0 - Course Nursing assessment & vital signs reviewed: Yes - Radiology Exams Chest X-ray Interpretation: Reviewed by me, Infiltrates (RSV) <DEBBIE MIRZA - Last Filed: 12/31/23 23:25> Ordered Tests: Active Orders 24 hr Category Date Time Status EKG-ER Only STAT Care 12/31/23 17:53 Active RIBS UNILATERAL W/ PA CXR Stat Exams 12/31/23 18:38 Completed Respiratory Therapy Assessment DAILY RT 12/31/23 20:53 Active Medication Summary Discontinued Medications Generic Name Dose Route Start Last Admin Trade Name Darryl PRN Reason Stop Dose Admin Albuterol/Ipratropium 3 ml 12/31/23 20:19 12/31/23 20:48 Ipratropium/Albuterol Sulfate 3 Ml Ampul.Neb IH 12/31/23 20:20 3 ml STAT ONE Administration Albuterol/Ipratropium Confirm 12/31/23 20:46 Ipratropium/Albuterol Sulfate 3 Ml Ampul.Neb Administered 12/31/23 20:47 Dose 3 ml IH .STK-MED ONE Ketorolac Tromethamine 30 mg 12/31/23 17:53 12/31/23 18:08 Ketorolac Tromethamine 30 Mg/Ml Inj IM 12/31/23 17:54 30 mg STAT ONE Administration Ketorolac Tromethamine Confirm 12/31/23 18:06 Ketorolac Tromethamine 30 Mg/Ml Inj Administered 12/31/23 18:07 Dose 30 mg .ROUTE .STK-MED ONE Methylprednisolone Sodium Succinate 125 mg 12/31/23 20:19 12/31/23 21:07 Methylprednis Sod Succ 125 Mg/2 Ml Vial IV 12/31/23 20:20 125 mg STAT ONE Administration Methylprednisolone Sodium Succinate Confirm 12/31/23 21:05 Methylprednis Sod Succ 125 Mg/2 Ml Vial Administered 12/31/23 21:06 Dose 125 mg .ROUTE .STK-MED ONE Sterile Water Confirm 12/31/23 21:05 Water For Injection,Sterile 10 Ml Vial Administered 12/31/23 21:06 Dose 10 ml IJ .STK-MED ONE Lab/Rad Data: Laboratory Results 12/31/23 Range/Units 18:16 Influenza Type A Ag NEGATIVE (NEGATIVE) Influenza Type B Ag NEGATIVE (NEGATIVE) RSV (PCR) POSITIVE A (NEGATIVE) SARS-CoV-2 (PCR) NEGATIVE (NEGATIVE) - Progress Progress: improved, re-examined Counseled pt/family regarding: lab results, diagnosis, need for follow-up, rad results <DEBBIE MIRZA - Last Filed: 12/31/23 23:25> - Progress Progress Note: 12/31/23 20:17 taken at change of shift from Dr. Hi after discussion of pending labs, findings and dif, and intro. I explained result to pt and he is comfortable with increase steroids and breathing Tx. 12/31/23 23:19 discussed progress with pt and that we have not found on limited w/u performed but that there still could be an evolving condition so further w/u is advised - and he prefers to continue outpt Tx rahter than admission or further obs in ER. and he has tge capacity to make this choice (DEBBIE MIRZA) Medical Desision Making - Discussion of managment Reviewed:: Test results, Need for additional workup Agreed on:: Treatment plan, need for follow-up - Diagnostic Testing Diagnostic test were ordered, analyzed, and reviewed by me: Yes Radiological Interpretation: Reviewed by me - Risk of complications The pt has a mod risk of morbidity or mortality based on: Need for prescription drug management The pt has a high risk of morbidity or mortality based on: Decision regarding hospitilization or escalation of hosp level of care <DEBBIE MIRZA - Last Filed: 12/31/23 23:25> <KEVIN HI - Last Filed: 12/31/23 17:54> - Departure Departure Disposition: Home Critical Care Time: No <DEBBIE MIRZA - Last Filed: 12/31/23 23:25> - Departure Clinical Impression: Persistent cough, RSV (respiratory syncytial virus infection) Condition: Good Referrals: ANJELICA LIN [Primary Care Provider] - Follow up/PCP as directed Instructions: Cough, Adult (DC), Respiratory Syncytial Virus, Adult (DC) Additional Instructions: Although we did find RSV as a source, there can still be further conditions or complications not yet detected - so follow-up with your Dr, is advised. return meantime if short of breath , vomiting or other concerns. followup with your for sara pressure also. Prescriptions: Methylprednisolone Packet [Medrol Dosepack] 4 mg PO UD #30 packet
[2023-12-31] MEDS ORDERED: TORAdol 30 mg Injection ONE (18:06)
[2023-12-31] MEDS: TORAdol 30 mg Injection IM ONE (18:08)
[2023-12-31 18:55] LABS: INFLUENZA A NEGATIVE (NEGATIVE); INFLUENZA B NEGATIVE (NEGATIVE); SARS-CoV-2 Xpert Express NEGATIVE (NEGATIVE)
[2023-12-31 18:57] LABS: RESPIRATORY SYNCTIAL VIRUS POSITIVE (NEGATIVE)
--- NOTE | 2023-12-31 19:29 | XRAY ---
Indication: Cough. Lower rib cage tenderness. Comparison: None Single PA chest and 2 view left ribs obtained. Normal heart and lungs. Bony thorax including left ribs are unremarkable.
[2023-12-31] MEDS ORDERED: DUONEB 0.5-3 MG/3 ml Neb IH ONE (20:46)
[2023-12-31] MEDS: DUONEB 0.5-3 MG/3 ml Neb IH ONE (20:48)
[2023-12-31] MEDS ORDERED: solu-MEDROL ONE (21:05)
[2023-12-31] MEDS ORDERED: Sterile H2O 10 ml IJ ONE (21:05)
[2023-12-31] MEDS: solu-MEDROL IV ONE (21:07)
[2023-12-31 21:34] VITALS: RESP 18
[2023-12-31 22:14] VITALS: PULSE 95; O2SAT 96
[2024-01-01 00:08] VITALS: BP 164/68
== END 2023-12-31 23:35 | disposition home or self-care (01) ==
LOC: ED 17:03
DX: J06.9 Acute upper respiratory infection, unspecified (principal); B97.4 Respiratory syncytial virus as the cause of diseases classified elsewhere; R05.3 Chronic cough; I10 Essential (primary) hypertension; Z79.52 Long term (current) use of systemic steroids; Z79.899 Other long term (current) drug therapy; Z28.310 Unvaccinated for COVID-19
CPT/HCPCS: 0241U; 36000; 71101; 93005; 94640; 96372; 96374; 99284; 96375; J1885; J2930; A9270-GY